=== PATIENT | female | born 2000 | race Caucasian/White ===

== ENCOUNTER 2019-04-07 15:44 | Outpatient (CLI) | payer OTHER ==
--- NOTE | 2019-04-07 18:40 | Ultrasound Report ---
ULTRASOUND BIOPHYSICAL PROFILE INDICATION / CLINICAL INFORMATION: KEARA. COMPARISON: None available. FINDINGS: BREATHING MOVEMENT = 2 GROSS BODY MOVEMENT = 2 TONE = 2 QUALITATIVE AMNIOTIC FLUID VOLUME = 2 TOTAL BIOPHYSICAL SCORE = 8 AMNIOTIC FLUID INDEX (cm) = 8.6 PRESENTATION: Cephalic. HEART RATE (beats per minute): 156 Placenta is grade 2. Single intrauterine gestation in the cephalic position. IMPRESSION: 1. biophysical profile = 03/04 Signer Name: Norman Beckford MD Signed: 04/07/2019 6:36 PM Workstation Name: [email or web address]
--- NOTE | 2019-04-07 19:23 | Ultrasound Report ---
ULTRASOUND BIOPHYSICAL PROFILE INDICATION / CLINICAL INFORMATION: FALL. well-being evaluation COMPARISON: None available. FINDINGS: BREATHING MOVEMENT = 2 GROSS BODY MOVEMENT = 2 TONE = 2 QUALITATIVE AMNIOTIC FLUID VOLUME = 2 TOTAL BIOPHYSICAL SCORE = 03/04 AMNIOTIC FLUID INDEX (cm) = 8.6 PRESENTATION: Cephalic. HEART RATE (beats per minute): 166 IMPRESSION: 1. biophysical profile = 03/04 Signer Name: Norman Beckford MD Signed: 04/07/2019 7:19 PM Workstation Name: [email or web address]
[2019-04-07 20:54] VITALS: BP 128/82
== END 2019-04-07 21:03 | disposition home or self-care (01) ==
LOC: TRG 15:44
PROVIDERS: ATTEND Obstetrics & Gynecology
DX: O47.1 False labor at or after 37 completed weeks of gestation (principal); Z3A.40 40 weeks gestation of pregnancy
CPT/HCPCS: 59025; 76815; 76819